=== PATIENT | male | born 1970 | race Hispanic/Latino ===

== ENCOUNTER 2021-01-28 09:05 | Emergency (ER) | payer OTHER ==
[2021-01-28] MEDS ORDERED: KETOROLAC TROMETHAMINE 30MG/ML ONE (09:21)
[2021-01-28] MEDS ORDERED: PROCHLORPERAZINE EDISYLATE 10 MG/2 ML VIAL ONE (09:22)
[2021-01-28] MEDS ORDERED: MORPHINE SULFATE 2 MG/ML 1ML SYG ONE (09:22)
[2021-01-28] MEDS ORDERED: SODIUM CHLORIDE 0.9% 1000ML 1,000 ML IV ONE (09:23)
[2021-01-28 09:26] LABS: BASOPHILS % (AUTO) 0.3 % (0.0-5.0); EOSINOPHILS % (AUTO) 0.4 % (0.0-8.0); LYMPHOCYTES % (AUTO) 9.9 % (21.0-51.0); MEAN CORPUSCULAR HEMOGLOBIN 30.2 pg (27.0-33.0); MEAN CORPUSCULAR HGB CONC 33.8 g/dL (32.0-36.0); MEAN CORPUSCULAR VOLUME 89.4 fL (79-99); NEUTROPHILS % (AUTO) 84.9 % (40.0-77.0); PLATELET COUNT (AUTO) 309 K/uL (130-400); RED CELL DISTRIBUTION WIDTH 12.4 % (11.0-15.5); WHITE BLOOD COUNT (AUTO) 15.2 K/uL (4.8-10.8)
[2021-01-28 09:40] LABS: CREATININE 1.7 mg/dL (0.5-1.5)
[2021-01-28 09:45] LABS: ALBUMIN 3.7 g/dL (3.5-5.0); BILIRUBIN,TOTAL 0.5 mg/dL (0.2-1.0); TOTAL PROTEIN, SERUM 8.1 g/dL (6.0-8.3)
[2021-01-28] MEDS ORDERED: HYDROCODONE/ACETAMINOPHEN 10/325 MG TAB ONE (11:46)
[2021-01-28] MEDS ORDERED: TAMSULOSIN HCL 0.4 MG CAP.ER.24H ONE (11:58)
== END 2021-01-28 14:14 | disposition home or self-care (01) ==
LOC: EDH 09:05
DX: N20.9 Urinary calculus, unspecified (principal); N39.0 Urinary tract infection, site not specified; R11.2 Nausea with vomiting, unspecified
CPT/HCPCS: 36415; 74176; 80053; 85025; 96361; 96374; 96375; 99284; J0780; J1885; J7030

== ENCOUNTER 2021-12-14 01:17 | Emergency (ER) | payer OTHER ==
[~2021-12-14] VITALS: Ht 157.5 cm; Wt 72.6 kg
[2021-12-14] MEDS ORDERED: SOLU-MEDROL 125MG VIAL IVP ONE (01:30)
[2021-12-14] MEDS ORDERED: ALBUTEROL 0.083% 2.5 MG/3 ML INH IH ONE ×2 (01:30→01:42)
[2021-12-14] MEDS ORDERED: SOLU-MEDROL 125MG VIAL ONE (01:36)
[2021-12-14 01:37] LABS: ABG BASE EXCESS -2.5 mmol/L (-2.0-3.0); ABG HCO3 22.1 mmol/L (21.0-28.0); ABG OXYGEN SATURATION 90.2 % (95.0-99.0); ABG PCO2 38 mmHg (35-48)
[2021-12-14 01:41] LABS: BASOPHILS % (AUTO) 0.3 % (0.0-5.0); EOSINOPHILS % (AUTO) 7.8 % (0.0-8.0); HEMATOCRIT 44.1 % (42-54); LYMPHOCYTES % (AUTO) 16.9 % (21.0-51.0); MEAN CORPUSCULAR HEMOGLOBIN 30.5 pg (27.0-33.0); MEAN CORPUSCULAR HGB CONC 34.2 g/dL (32.0-36.0); MEAN CORPUSCULAR VOLUME 89.1 fL (79-99); MONOCYTES % (AUTO) 5.1 % (3.0-13.0); NEUTROPHILS % (AUTO) 69.5 % (40.0-77.0); PLATELET COUNT (AUTO) 340 K/uL (130-400); RED BLOOD CELL COUNT(AUTO) 4.95 MIL/uL (4.50-6.20); RED CELL DISTRIBUTION WIDTH 12.4 % (11.0-15.5); WHITE BLOOD COUNT (AUTO) 10.6 K/uL (4.8-10.8)
[2021-12-14 01:51] LABS: INR 1.02 (0.85-1.15); PROTHROMBIN TIME 11.1 SEC (9.6-11.6)
[2021-12-14 01:53] LABS: PARTIAL THROMBOPLASTIN TIME 28.8 SEC (26.3-35.5)
[2021-12-14 01:55] LABS: CREATININE 1.6 mg/dL (0.5-1.5); POTASSIUM 3.8 mmol/L (3.5-5.1)
[2021-12-14 02:00] LABS: ALBUMIN 3.6 g/dL (3.5-5.0); BILIRUBIN,TOTAL 0.3 mg/dL (0.2-1.0); CRP QUANTITATIVE 9.4 mg/L (0.00-9.0); TOTAL PROTEIN, SERUM 7.1 g/dL (6.0-8.3)
[2021-12-14] MEDS ORDERED: AZITHROMYCIN 500MG+NS 250ML IVPB ONE (02:00)
[2021-12-14] MEDS ORDERED: CEFTRIAXONE 1G VIAL IVP ONE (02:00)
[2021-12-14] MEDS ORDERED: DiphenhydrAMINE HCL 50 MG/ML VIAL IV ONE (02:00)
[2021-12-14] MEDS ORDERED: IOHEXOL 350 MG/ML 100ML INFUS..BTL IV ONE (02:53)
[2021-12-14] MEDS ORDERED: AZITHROMYCIN 500MG+NS 250ML 250 ML ONE (03:17)
[2021-12-14] MEDS ORDERED: CEFTRIAXONE 1G VIAL ONE (03:17)
[2021-12-14] MEDS ORDERED: DiphenhydrAMINE HCL 50 MG/ML VIAL ONE (03:17)
[2021-12-14 05:10] VITALS: BP 120/82
[2021-12-14] MEDS ORDERED: AZIT250T9 PO (05:48)
[2021-12-14] MEDS ORDERED: PRED20TA3 PO (05:48)
[2021-12-15] MEDS ORDERED: PANT40TA PO (07:00)
== END 2021-12-14 06:11 | disposition home or self-care (01) ==
LOC: EDH 01:17
DX: J45.909 Unspecified asthma, uncomplicated (principal); R06.03 Acute respiratory distress; R09.02 Hypoxemia; Z20.822 Contact with and (suspected) exposure to COVID-19; I10 Essential (primary) hypertension; Z72.0 Tobacco use
CPT/HCPCS: 36415; 36600; 71045; 71275; 80053; 82803; 83605; 83690; 83880; 84484; 85025; 85378; 85610; 85730; 86140; 87040 ×2; 87635; 87804 ×2; 93005; 94640; 96365; 96375; 99285; C9803; J0456; J0696; J1200; J2930; Q9967

== ENCOUNTER 2021-12-15 03:14 | Emergency (ER) | payer OTHER ==
[~2021-12-15] VITALS: Ht 157.5 cm; Wt 72.6 kg
[~2021-12-15 03:14] MED LIST: AZIT250T9 PO; PRED20TA3 PO
[2021-12-15] MEDS ORDERED: DiphenhydrAMINE HCL 50 MG/ML VIAL ONE (03:28)
[2021-12-15] MEDS ORDERED: SOLU-MEDROL 125MG VIAL ONE (03:28)
[2021-12-15] MEDS ORDERED: ALBUTEROL 0.083% 2.5 MG/3 ML INH IH ONE ×2 (03:30→04:00)
[2021-12-15] MEDS ORDERED: FAMOTIDINE 20MG VIAL IV ONE ×2 (03:36→04:00)
[2021-12-15 03:40] LABS: BASOPHILS % (AUTO) 0.1 % (0.0-5.0); EOSINOPHILS % (AUTO) 0.1 % (0.0-8.0); HEMATOCRIT 42.3 % (42-54); LYMPHOCYTES % (AUTO) 8.6 % (21.0-51.0); MEAN CORPUSCULAR HEMOGLOBIN 29.4 pg (27.0-33.0); MEAN CORPUSCULAR HGB CONC 32.9 g/dL (32.0-36.0); MEAN CORPUSCULAR VOLUME 89.4 fL (79-99); MONOCYTES % (AUTO) 4.3 % (3.0-13.0); NEUTROPHILS % (AUTO) 86.6 % (40.0-77.0); PLATELET COUNT (AUTO) 340 K/uL (130-400); RED BLOOD CELL COUNT(AUTO) 4.73 MIL/uL (4.50-6.20); RED CELL DISTRIBUTION WIDTH 12.4 % (11.0-15.5); WHITE BLOOD COUNT (AUTO) 14.4 K/uL (4.8-10.8)
[2021-12-15 03:54] LABS: CREATININE 1.3 mg/dL (0.5-1.5); POTASSIUM 4.2 mmol/L (3.5-5.1)
[2021-12-15 03:59] LABS: ALBUMIN 3.6 g/dL (3.5-5.0); BILIRUBIN,TOTAL 0.3 mg/dL (0.2-1.0); TOTAL PROTEIN, SERUM 7.6 g/dL (6.0-8.3)
[2021-12-15] MEDS ORDERED: DiphenhydrAMINE HCL 50 MG/ML VIAL IV ONE (04:00)
[2021-12-15] MEDS ORDERED: SOLU-MEDROL 125MG VIAL IVP ONE (04:00)
[2021-12-15] MEDS: ALBUTEROL 0.083% 2.5 MG/3 ML INH IH ONE ×2 (04:30→04:31)
[2021-12-15] MEDS ORDERED: PANTOPRAZOLE 40 MG/VIAL ONE (06:19)
[2021-12-15] MEDS ORDERED: PANTOPRAZOLE 40 MG/VIAL IVP SCH (06:30)
[2021-12-15] MEDS ORDERED: PANT40TA PO (07:00)
[2021-12-15 07:11] VITALS: BP 108/63
== END 2021-12-15 07:18 | disposition home or self-care (01) ==
LOC: EDH 03:14
DX: J45.909 Unspecified asthma, uncomplicated (principal); K44.9 Diaphragmatic hernia without obstruction or gangrene; R06.03 Acute respiratory distress; Z72.0 Tobacco use; Z79.52 Long term (current) use of systemic steroids
CPT/HCPCS: 71045; 36415; 80053; 84484; 85025; 93005; 94640 ×3; 96374; 96375; 99285; C9113; J1200; J2930; J3490

== ENCOUNTER 2022-01-11 17:11 | Observation (INO) | payer OTHER ==
[~2022-01-11] VITALS: Ht 162.6 cm; Wt 72.3 kg
[~2022-01-11 17:11] MED LIST changes: +PANT40TA PO
[2022-01-11] MEDS ORDERED: SOLU-MEDROL 125MG VIAL IVP SCH (17:30)
[2022-01-11 17:35] LABS: ABG BASE EXCESS -4.7 mmol/L (-2.0-3.0); ABG HCO3 19.6 mmol/L (21.0-28.0); ABG OXYGEN SATURATION 75.7 % (95.0-99.0); ABG PCO2 34 mmHg (35-48)
[2022-01-11] MEDS ORDERED: SOLU-MEDROL 125MG VIAL ONE (17:35)
[2022-01-11 17:37] LABS: BASOPHILS % (AUTO) 0.1 % (0.0-5.0); EOSINOPHILS % (AUTO) 0.7 % (0.0-8.0); HEMATOCRIT 45.3 % (42-54); LYMPHOCYTES % (AUTO) 11.2 % (21.0-51.0); MEAN CORPUSCULAR HEMOGLOBIN 29.7 pg (27.0-33.0); MEAN CORPUSCULAR HGB CONC 32.7 g/dL (32.0-36.0); MONOCYTES % (AUTO) 2.9 % (3.0-13.0); NEUTROPHILS % (AUTO) 84.5 % (40.0-77.0); PLATELET COUNT (AUTO) 380 K/uL (130-400); RED BLOOD CELL COUNT(AUTO) 4.98 MIL/uL (4.50-6.20); RED CELL DISTRIBUTION WIDTH 12.3 % (11.0-15.5); WHITE BLOOD COUNT (AUTO) 14.3 K/uL (4.8-10.8)
[2022-01-11 17:42] LABS: ABG BASE EXCESS -2.2 mmol/L (-2.0-3.0); ABG HCO3 22.6 mmol/L (21.0-28.0); ABG OXYGEN SATURATION 99.4 % (95.0-99.0); ABG PCO2 39 mmHg (35-48)
[2022-01-11] MEDS: IPRATROPIUM/ALBUTEROL SULFATE 3 ML SOLUTION IH PRN ×2 (17:51→17:52)
[2022-01-11] MEDS ORDERED: MAGNESIUM 2GM PREMIX 50ML 50 ML IV SCH (18:00)
[2022-01-11 18:03] LABS: B-TYPE NATRIURETIC PEPTIDE < 5 pg/mL (0-100)
[2022-01-11 18:57] LABS: CREATININE 1.9 mg/dL (0.5-1.5); POTASSIUM 3.9 mmol/L (3.5-5.1)
[2022-01-11 19:02] LABS: ALBUMIN 3.4 g/dL (3.5-5.0); BILIRUBIN,TOTAL 0.4 mg/dL (0.2-1.0); MAGNESIUM 1.8 mg/dL (1.80-2.40)
[2022-01-12] MEDS ORDERED: ACETAMINOPHEN 325 MG TAB PO PRN (00:30)
[2022-01-12] MEDS ORDERED: ONDANSETRON 4MG TABLET PO PRN (00:30)
[2022-01-12] MEDS: IPRATROPIUM/ALBUTEROL SULFATE 3 ML SOLUTION IH SCH ×6 (03:37→23:30)
[2022-01-12] MEDS: LEVOFLOXACIN 500 MG TABLET PO SCH (08:45)
[2022-01-12] MEDS: SOLU-MEDROL 40MG VIAL IVP SCH ×2 (08:45→21:12)
[2022-01-12 14:25] LABS: BASOPHILS % (AUTO) 0.1 % (0.0-5.0); HEMATOCRIT 39.7 % (42-54); LYMPHOCYTES % (AUTO) 4.1 % (21.0-51.0); MEAN CORPUSCULAR HEMOGLOBIN 30.6 pg (27.0-33.0); MEAN CORPUSCULAR HGB CONC 33.2 g/dL (32.0-36.0); MEAN CORPUSCULAR VOLUME 91.9 fL (79-99); MONOCYTES % (AUTO) 1.5 % (3.0-13.0); NEUTROPHILS % (AUTO) 93.9 % (40.0-77.0); PLATELET COUNT (AUTO) 337 K/uL (130-400); RED BLOOD CELL COUNT(AUTO) 4.32 MIL/uL (4.50-6.20); RED CELL DISTRIBUTION WIDTH 12.5 % (11.0-15.5); WHITE BLOOD COUNT (AUTO) 16.7 K/uL (4.8-10.8)
[2022-01-12 14:49] LABS: ALBUMIN 3.3 g/dL (3.5-5.0); CREATININE 1.4 mg/dL (0.5-1.5); PHOSPHORUS 3.1 mg/dL (2.5-4.9); POTASSIUM 4.5 mmol/L (3.5-5.1)
[2022-01-12 14:52] LABS: BILIRUBIN,TOTAL 0.2 mg/dL (0.2-1.0); MAGNESIUM 2.1 mg/dL (1.80-2.40); TOTAL PROTEIN, SERUM 7.2 g/dL (6.0-8.3)
[2022-01-12 20:04] VITALS: BP 113/68
[2022-01-12] MEDS ORDERED: FLUT1AER IH (21:19)
[2022-01-12] MEDS ORDERED: ALBUHFA IH (21:19)
[2022-01-13 00:04] VITALS: BP 118/78
[2022-01-13] MEDS: IPRATROPIUM/ALBUTEROL SULFATE 3 ML SOLUTION IH SCH ×3 (02:37→10:28)
[2022-01-13] MEDS ORDERED: ALBUTEROL INHALER 90MCG/INH IH PRN (03:00)
[2022-01-13 03:18] LABS: ABG BASE EXCESS -2.3 mmol/L (-2.0-3.0); ABG HCO3 20.6 mmol/L (21.0-28.0); ABG OXYGEN SATURATION 93.9 % (95.0-99.0); ABG PCO2 31 mmHg (35-48)
[2022-01-13 04:08] VITALS: BP 113/73
[2022-01-13 05:06] LABS: BASOPHILS % (AUTO) 0.1 % (0.0-5.0); HEMATOCRIT 38.5 % (42-54); MEAN CORPUSCULAR HGB CONC 33.8 g/dL (32.0-36.0); MEAN CORPUSCULAR VOLUME 91.9 fL (79-99); MONOCYTES % (AUTO) 2.1 % (3.0-13.0); NEUTROPHILS % (AUTO) 92.9 % (40.0-77.0); PLATELET COUNT (AUTO) 333 K/uL (130-400); RED BLOOD CELL COUNT(AUTO) 4.19 MIL/uL (4.50-6.20); RED CELL DISTRIBUTION WIDTH 12.7 % (11.0-15.5); WHITE BLOOD COUNT (AUTO) 16.9 K/uL (4.8-10.8)
[2022-01-13 05:42] LABS: ALBUMIN 3.1 g/dL (3.5-5.0); BILIRUBIN,TOTAL 0.2 mg/dL (0.2-1.0); CREATININE 1.5 mg/dL (0.5-1.5); MAGNESIUM 2.2 mg/dL (1.80-2.40); PHOSPHORUS 3.5 mg/dL (2.5-4.9); POTASSIUM 4.3 mmol/L (3.5-5.1)
[2022-01-13 07:00] VITALS: BP 114/72
[2022-01-13] MEDS: SOLU-MEDROL 40MG VIAL IVP SCH (08:58)
[2022-01-13] MEDS ORDERED: PANTOPRAZOLE 40 MG TAB DR PO SCH (09:00)
[2022-01-13] MEDS: LEVOFLOXACIN 500 MG TABLET PO SCH (09:00)
[2022-01-13] MEDS ORDERED: FLUTICASONE/VILANTEROL 1 EACH AER.POW.BA IH SCH (09:00)
[2022-01-13 11:40] VITALS: BP 116/81
[2022-01-14] MEDS ORDERED: FLUTICASONE/VILANTEROL 1 EACH AER.POW.BA IH SCH (09:00)
== END 2022-01-13 15:35 ==
LOC: EDH 17:11 → EDHIP 01-12 00:11 → 3BH 01-12 17:05
PROVIDERS: ADMIT Internal Medicine Infectious Disease; ATTEND Internal Medicine Infectious Disease
DX: J96.01 Acute respiratory failure with hypoxia (principal); Z20.822 Contact with and (suspected) exposure to COVID-19; J45.901 Unspecified asthma with (acute) exacerbation; N17.9 Acute kidney failure, unspecified; E88.09 Other disorders of plasma-protein metabolism, not elsewhere classified; D72.829 Elevated white blood cell count, unspecified; K21.9 Gastro-esophageal reflux disease without esophagitis; I10 Essential (primary) hypertension; T38.0X5A Adverse effect of glucocorticoids and synthetic analogues, initial encounter; D72.810 Lymphocytopenia; R53.81 Other malaise; Z79.899 Other long term (current) drug therapy; Z98.890 Other specified postprocedural states
CPT/HCPCS: 36415 ×3; 36600; 71045 ×2; 78582; 80053 ×3; 82803 ×3; 83735 ×3; 83880; 84100 ×2; 84145 ×2; 84484; 85025 ×3; 85378; 87635; 87804 ×2; 94640 ×10; 94664; 96374; 96376 ×2; 99285; A9540; A9558; C9803; G0378 ×38; J2920 ×3; J2930

== ENCOUNTER 2022-03-06 03:25 | Inpatient (IN) | payer OTHER ==
[~2022-03-06] VITALS: Ht 162.6 cm; Wt 69.2 kg
[~2022-03-06 03:25] MED LIST changes: +ALBUHFA IH; -AZIT250T9 PO; +FLUT1AER IH; -PANT40TA PO; -PRED20TA3 PO
[2022-03-06 03:46] LABS: BASOPHILS % (AUTO) 0.1 % (0.0-5.0); EOSINOPHILS % (AUTO) 1.2 % (0.0-8.0); HEMATOCRIT 43.8 % (42-54); MEAN CORPUSCULAR HEMOGLOBIN 30.1 pg (27.0-33.0); MEAN CORPUSCULAR HGB CONC 33.8 g/dL (32.0-36.0); MEAN CORPUSCULAR VOLUME 89.2 fL (79-99); MONOCYTES % (AUTO) 7.9 % (3.0-13.0); NEUTROPHILS % (AUTO) 74.3 % (40.0-77.0); PLATELET COUNT (AUTO) 277 K/uL (130-400); RED BLOOD CELL COUNT(AUTO) 4.91 MIL/uL (4.50-6.20); RED CELL DISTRIBUTION WIDTH 13.1 % (11.0-15.5); WHITE BLOOD COUNT (AUTO) 7.7 K/uL (4.8-10.8)
[2022-03-06 03:55] LABS: CREATININE 1.6 mg/dL (0.5-1.5); POTASSIUM 3.7 mmol/L (3.5-5.1)
[2022-03-06 03:58] LABS: ALBUMIN 3.7 g/dL (3.5-5.0); BILIRUBIN,TOTAL 0.3 mg/dL (0.2-1.0); TOTAL PROTEIN, SERUM 7.6 g/dL (6.0-8.3)
[2022-03-06 04:00] LABS: ABG BASE EXCESS -4.3 mmol/L (-2.0-3.0); ABG HCO3 19.2 mmol/L (21.0-28.0); ABG OXYGEN SATURATION 94.4 % (95.0-99.0); ABG PCO2 31 mmHg (35-48)
[2022-03-06] MEDS ORDERED: IPRATROPIUM/ALBUTEROL SULFATE 3 ML SOLUTION IH ONE (04:00)
[2022-03-06] MEDS ORDERED: DEXAMETHASONE SOD PHOSPHATE 4 MG/ML 1ML VIAL IVP ONE (05:00)
[2022-03-06] MEDS ORDERED: CEFTRIAXONE 1G VIAL ONE (05:35)
[2022-03-06] MEDS ORDERED: SOLU-MEDROL 40MG VIAL IVP SCH (07:31)
[2022-03-06] MEDS ORDERED: ONDANSETRON ODT 4MG TAB PO PRN (08:00)
[2022-03-06] MEDS ORDERED: ACETAMINOPHEN 325 MG TAB PO PRN (08:00)
[2022-03-06] MEDS: SOLU-MEDROL 40MG VIAL IVP SCH ×2 (08:04→20:30)
[2022-03-06 08:10] VITALS: BP 111/71
[2022-03-06] MEDS: DOXYCYCLINE HYCLATE 100 MG TABLET PO SCH ×2 (09:17→20:30)
[2022-03-06] MEDS: ENOXAPARIN SODIUM 40 MG/0.4 ML SYRINGE SQ SCH (09:17)
[2022-03-06] MEDS ORDERED: PHARMACY COMMUNICATION MISC SCH (10:30)
[2022-03-06 11:41] VITALS: BP 113/74
[2022-03-06] MEDS ORDERED: IPRATROPIUM/ALBUTEROL SULFATE 3 ML SOLUTION IH SCH (12:00)
[2022-03-06] MEDS ORDERED: COMPOUND IV REFRIGERATED 1 EACH IVSOLN MISC PRN (14:00)
[2022-03-06] MEDS ORDERED: REMDESIVIR (EUA) 520 200 MG in 0.9% NACL 250ML 250 ML IV ONE (14:00)
[2022-03-06 16:00] VITALS: BP 107/68
[2022-03-06 20:05] VITALS: BP 126/57
[2022-03-07] VITALS: BP 100/68
[2022-03-07 04:00] VITALS: BP 105/70
[2022-03-07] MEDS: REMDESIVIR LABS MISC SCH (05:16)
[2022-03-07 08:00] VITALS: BP 105/69
[2022-03-07] MEDS: CEFTRIAXONE 1G VIAL IVP SCH (09:19)
[2022-03-07] MEDS: SOLU-MEDROL 40MG VIAL IVP SCH ×2 (09:19→20:26)
[2022-03-07] MEDS: DOXYCYCLINE HYCLATE 100 MG TABLET PO SCH ×2 (09:19→20:26)
[2022-03-07] MEDS: ENOXAPARIN SODIUM 40 MG/0.4 ML SYRINGE SQ SCH (09:19)
[2022-03-07 11:44] VITALS: BP 114/67
[2022-03-07 13:58] LABS: ALBUMIN 3.1 g/dL (3.5-5.0); BILIRUBIN,TOTAL 0.1 mg/dL (0.2-1.0); CREATININE 1.6 mg/dL (0.5-1.5); POTASSIUM 4.4 mmol/L (3.5-5.1); TOTAL PROTEIN, SERUM 6.8 g/dL (6.0-8.3)
[2022-03-07] MEDS: REMDESIVIR (EUA) 520 100 MG in 0.9% NACL 250ML 250 ML IV SCH (14:11)
[2022-03-07 16:00] VITALS: BP 112/68
[2022-03-07 20:10] VITALS: BP 123/67
[2022-03-08 00:01] VITALS: BP 119/86
[2022-03-08 04:00] VITALS: BP 106/70
[2022-03-08 04:32] LABS: HEMATOCRIT 41.5 % (42-54); MEAN CORPUSCULAR HGB CONC 32.8 g/dL (32.0-36.0); MEAN CORPUSCULAR VOLUME 91.6 fL (79-99); RED BLOOD CELL COUNT(AUTO) 4.53 MIL/uL (4.50-6.20); WHITE BLOOD COUNT (AUTO) 10.6 K/uL (4.8-10.8)
[2022-03-08 04:59] LABS: BILIRUBIN,TOTAL 0.1 mg/dL (0.2-1.0); CREATININE 1.3 mg/dL (0.5-1.5); MAGNESIUM 2.1 mg/dL (1.80-2.40); POTASSIUM 4.6 mmol/L (3.5-5.1); TOTAL PROTEIN, SERUM 6.7 g/dL (6.0-8.3)
[2022-03-08] MEDS: REMDESIVIR LABS MISC SCH (06:00)
[2022-03-08 08:00] VITALS: BP 123/73
[2022-03-08] MEDS: CEFTRIAXONE 1G VIAL IVP SCH (09:37)
[2022-03-08] MEDS: SOLU-MEDROL 40MG VIAL IVP SCH ×2 (09:37→20:36)
[2022-03-08] MEDS: ENOXAPARIN SODIUM 40 MG/0.4 ML SYRINGE SQ SCH (09:38)
[2022-03-08] MEDS: DOXYCYCLINE HYCLATE 100 MG TABLET PO SCH ×2 (09:38→20:36)
[2022-03-08 12:03] VITALS: BP 115/72
[2022-03-08] MEDS: REMDESIVIR (EUA) 520 100 MG in 0.9% NACL 250ML 250 ML IV SCH (14:26)
[2022-03-08 15:44] VITALS: BP 112/79
[2022-03-08 20:00] VITALS: BP 120/76
[2022-03-09] VITALS: BP 120/76
[2022-03-09 04:00] VITALS: BP 126/74
[2022-03-09 05:14] LABS: ALBUMIN 3.1 g/dL (3.5-5.0); BILIRUBIN,TOTAL 0.1 mg/dL (0.2-1.0); CREATININE 1.2 mg/dL (0.5-1.5); POTASSIUM 4.1 mmol/L (3.5-5.1); TOTAL PROTEIN, SERUM 6.7 g/dL (6.0-8.3)
[2022-03-09] MEDS: REMDESIVIR LABS MISC SCH (05:43)
[2022-03-09 08:00] VITALS: BP 124/78
[2022-03-09] MEDS: SOLU-MEDROL 40MG VIAL IVP SCH ×2 (08:31→20:16)
[2022-03-09] MEDS: CEFTRIAXONE 1G VIAL IVP SCH (08:31)
[2022-03-09] MEDS: ENOXAPARIN SODIUM 40 MG/0.4 ML SYRINGE SQ SCH (08:31)
[2022-03-09] MEDS: DOXYCYCLINE HYCLATE 100 MG TABLET PO SCH ×2 (08:31→20:16)
[2022-03-09 11:51] VITALS: BP 113/73
[2022-03-09] MEDS: REMDESIVIR (EUA) 520 100 MG in 0.9% NACL 250ML 250 ML IV SCH (13:03)
[2022-03-09 16:00] VITALS: BP 118/76
[2022-03-09 20:00] VITALS: BP 117/78
[2022-03-10] VITALS: BP 110/68
[2022-03-10 04:00] VITALS: BP 108/75
[2022-03-10] MEDS: REMDESIVIR LABS MISC SCH (06:00)
[2022-03-10] MEDS: CEFTRIAXONE 1G VIAL IVP SCH (07:43)
[2022-03-10] MEDS: DOXYCYCLINE HYCLATE 100 MG TABLET PO SCH (07:43)
[2022-03-10] MEDS: ENOXAPARIN SODIUM 40 MG/0.4 ML SYRINGE SQ SCH (07:43)
[2022-03-10] MEDS: SOLU-MEDROL 40MG VIAL IVP SCH (07:43)
[2022-03-10 07:48] VITALS: BP 136/82
[2022-03-10 11:22] VITALS: BP 109/74
[2022-03-10] MEDS ORDERED: PRED20B PO (11:48)
[2022-03-10] MEDS: REMDESIVIR (EUA) 520 100 MG in 0.9% NACL 250ML 250 ML IV SCH (13:47)
[2022-03-10 15:45] VITALS: BP 107/69
[2022-03-11] MEDS ORDERED: PREDNISONE 20 MG TABLET PO SCH (09:00)
== END 2022-03-10 17:38 | disposition home or self-care (01) | DRG 177 ==
LOC: EDH 03:25 → EDHIP 04:56 → 2AH 08:48
PROVIDERS: ADMIT Internal Medicine Infectious Disease; ATTEND Internal Medicine Infectious Disease
PROC: 5A09357 Assistance with Respiratory Ventilation, Less than 24 Consecutive Hours, Continuous Positive Airway Pressure (ICD-10-PCS; principal; 2022-03-06)
PROC: XW033E5 Introduction of Remdesivir Anti-infective into Peripheral Vein, Percutaneous Approach, New Technology Group 5 (ICD-10-PCS; 2022-03-07)
DX: U07.1 COVID-19 (principal); J12.82 Pneumonia due to coronavirus disease 2019; J96.01 Acute respiratory failure with hypoxia; J44.0 Chronic obstructive pulmonary disease with (acute) lower respiratory infection; J44.1 Chronic obstructive pulmonary disease with (acute) exacerbation; N17.9 Acute kidney failure, unspecified; K21.9 Gastro-esophageal reflux disease without esophagitis; R53.81 Other malaise; I10 Essential (primary) hypertension; Z91.19 Patient's noncompliance with other medical treatment and regimen
CPT/HCPCS: 36415; 36600; 71045; 80053; 82803; 83605; 83735; 84484; 85025; 85027; 87040; 87635; 87804; 93005; 94640; 94660; 94760; 99291; C9803; G0378; J0696; J1100; J1650; J2920; J7050

== ENCOUNTER 2023-04-26 00:52 | Inpatient (IN) | payer OTHER ==
[2023-04-26] VITALS (12 sets, daily range): BP systolic 104–113; BP diastolic 58–70; PULSE 74–116; RESP 16–32; O2SAT 95–98
[~2023-04-26] VITALS: Ht 162.6 cm; Wt 71.3 kg
[~2023-04-26 00:52] MED LIST changes: +PRED20B PO
[2023-04-26] MEDS ORDERED: IPRATROPIUM/ALBUTEROL SULFATE 3 ML SOLUTION IH ONE ×3 (00:54→01:30)
[2023-04-26] MEDS ORDERED: SOLU-MEDROL 125MG VIAL ONE (00:55)
[2023-04-26] MEDS ORDERED: MAGNESIUM 2GM PREMIX 50ML 50 ML IV ONE (00:58)
[2023-04-26 01:07] LABS: BASOPHILS # (AUTO) 0.03 K/uL (0.00-0.20); BASOPHILS % (AUTO) 0.2 % (0.0-5.0); EOSINOPHILS # (AUTO) 0.08 K/uL (0.00-0.70); EOSINOPHILS % (AUTO) 0.6 % (0.0-8.0); HEMATOCRIT 44.9 % (42-54); IMMATURE GRANULOCYTE ABSOLUTE 0.05 K/uL (0-1); LYMPHOCYTES # (AUTO) 2.2 K/uL (1.0-4.8); LYMPHOCYTES % (AUTO) 15.2 % (21.0-51.0); MEAN CORPUSCULAR HEMOGLOBIN 30.2 pg (27.0-33.0); MEAN CORPUSCULAR HGB CONC 33.4 g/dL (32.0-36.0); MEAN CORPUSCULAR VOLUME 90.3 fL (79-99); MONOCYTES # (AUTO) 0.4 K/uL (0.1-1.0); MONOCYTES % (AUTO) 2.8 % (3.0-13.0); NEUTROPHILS # (AUTO) 11.5 K/uL (1.8-7.7); NEUTROPHILS % (AUTO) 80.8 % (40.0-77.0); PLATELET COUNT (AUTO) 315 K/uL (130-400); RED BLOOD CELL COUNT(AUTO) 4.97 MIL/uL (4.50-6.20); RED CELL DISTRIBUTION WIDTH 12.6 % (11.0-15.5); WHITE BLOOD COUNT (AUTO) 14.3 K/uL (4.8-10.8)
[2023-04-26 01:18] LABS: CREATININE 2.1 mg/dL (0.5-1.5); POTASSIUM 3.8 mmol/L (3.5-5.1)
[2023-04-26 01:28] LABS: ALBUMIN 3.5 g/dL (3.5-5.0); BILIRUBIN,TOTAL 0.3 mg/dL (0.2-1.0); MAGNESIUM 1.9 mg/dL (1.80-2.40); TOTAL PROTEIN, SERUM 7.1 g/dL (6.0-8.3)
[2023-04-26] MEDS ORDERED: SOLU-MEDROL 125MG VIAL IVP ONE (01:30)
[2023-04-26] MEDS ORDERED: MAGNESIUM 2GM PREMIX 50ML 50 ML IV SCH (01:30)
[2023-04-26 01:35] LABS: SARS-CoV-2, RNA, NAAT NEGATIVE SARS CoV-2 (NEGATIVE)
[2023-04-26 01:38] LABS: B-TYPE NATRIURETIC PEPTIDE < 5 pg/mL (0-100)
[2023-04-26 01:39] LABS: INFLUENZA TYPE A Negative For Type A (NEGATIVE); INFLUENZA TYPE B Negative For Type B (NEGATIVE)
[2023-04-26] MEDS ORDERED: CEFU500T67 PO (03:50)
[2023-04-26] MEDS ORDERED: ALBU90AE2 IH (03:50)
[2023-04-26] MEDS ORDERED: PRED20TA3 PO (03:50)
[2023-04-26] MEDS ORDERED: ACETAMINOPHEN 325 MG TAB PO PRN (07:00)
[2023-04-26] MEDS ORDERED: IPRATROPIUM/ALBUTEROL SULFATE 3 ML SOLUTION IH PRN (07:00)
[2023-04-26] MEDS ORDERED: ONDANSETRON 4MG INJ IVP PRN (07:00)
[2023-04-26] MEDS ORDERED: CEFTRIAXONE 1G VIAL IVPB ONE (07:00)
[2023-04-26] MEDS ORDERED: AZITHROMYCIN 250 MG TABLET PO ONE (07:00)
[2023-04-26] MEDS ORDERED: SOLU-MEDROL 40MG VIAL IVP SCH (09:00)
[2023-04-26] MEDS: ENOXAPARIN SODIUM 30 MG/0.3 ML SQ SCH (09:00)
[2023-04-26 12:13] LABS: ABG BASE EXCESS -3.1 mmol/L (-2.0-3.0); ABG HCO3 20.7 mmol/L (21.0-28.0); ABG PCO2 34 mmHg (35-48); ABG PH 7.403 (7.35-7.450); DEVICE COMMENT LR; PO2, ARTERIAL BG 90.7 mmHg (83.0-108.0); VENT MODE, BG RA (ROOM AIR)
[2023-04-26] MEDS ORDERED: IPRATROPIUM 0.5 MG/2.5 ML INH IH SCH (14:00)
[2023-04-26 19:55] LABS: APPEARANCE,URINE CLEAR (CLEAR); BILIRUBIN,URINE NEGATIVE (NEGATIVE); COLOR,URINE LIGHT-YELLOW (YELLOW); GLUCOSE, URINE (UA) >=1000 mg/dL (NEGATIVE); KETONES,URINE 10 mg/dL (NEGATIVE); LEUKOCYTE ESTERASE ,URINE NEGATIVE Leu/uL (NEGATIVE); NITRATE,URINE NEGATIVE (NEGATIVE); OCCULT BLOOD,URINE SMALL (NEGATIVE); PH,URINE 5.5 (5.0-8.0); PROTEIN,URINE 10 mg/dL (NEGATIVE); UROBILINOGEN,URINE 0.2 mg/dL (0.2-1.0)
[2023-04-26 19:56] LABS: ADD UA MICROSCOPIC YES; MUCUS,URINE RARE LPF (None Seen); SQUAMOUS EPITHELIAL CELL,UR RARE /HPF (0-2); WBC,URINE 0-1 /HPF (0-1)
[2023-04-26] MEDS: DOXYCYCLINE HYCLATE 100 MG TABLET PO SCH (21:28)
[2023-04-27] VITALS (8 sets, daily range): BP systolic 109–129; BP diastolic 64–80; PULSE 78–102; RESP 18–22; O2SAT 95–98
[2023-04-27] MEDS ORDERED: PREDNISONE 20 MG TABLET PO SCH (09:00)
[2023-04-27] MEDS: DOXYCYCLINE HYCLATE 100 MG TABLET PO SCH (09:08)
[2023-04-27] MEDS: ENOXAPARIN SODIUM 30 MG/0.3 ML SQ SCH (09:09)
[2023-04-27 11:46] LABS: MEAN CORPUSCULAR HEMOGLOBIN 30.7 pg (27.0-33.0); MEAN CORPUSCULAR HGB CONC 34.1 g/dL (32.0-36.0); MEAN CORPUSCULAR VOLUME 90.1 fL (79-99); RED BLOOD CELL COUNT(AUTO) 4.33 MIL/uL (4.50-6.20); RED CELL DISTRIBUTION WIDTH 13.1 % (11.0-15.5)
[2023-04-27 11:59] LABS: CREATININE 1.3 mg/dL (0.5-1.5); POTASSIUM 4.3 mmol/L (3.5-5.1)
[2023-04-27 12:02] LABS: MAGNESIUM 2.2 mg/dL (1.80-2.40); PHOSPHORUS 2.9 mg/dL (2.5-4.9)
== END 2023-04-27 17:07 | disposition home or self-care (01) | DRG 189 ==
LOC: EDH 00:52 → EDHIP 06:56 → 3AH 08:34
PROVIDERS: ADMIT Internal Medicine Infectious Disease; ATTEND Internal Medicine Infectious Disease
PROC: 5A09357 Assistance with Respiratory Ventilation, Less than 24 Consecutive Hours, Continuous Positive Airway Pressure (ICD-10-PCS; principal; 2023-04-26)
DX: J96.91 Respiratory failure, unspecified with hypoxia (principal); J44.1 Chronic obstructive pulmonary disease with (acute) exacerbation; Z20.822 Contact with and (suspected) exposure to COVID-19; D72.829 Elevated white blood cell count, unspecified; N18.9 Chronic kidney disease, unspecified; Z91.148 Patient's other noncompliance with medication regimen for other reason
CPT/HCPCS: 36415; 36600; 71045; 76770; 78582; 80048; 80053; 81001; 82550; 82803; 82948; 83735; 83874; 83880; 84100; 84484; 85025; 85027; 85378; 87635; 87804; 93005; 94640; 94660; 94664; 94760; A9540; A9558; C9803; G0378; J0696; J1650; J2920; J2930; J3475